=== PATIENT | male | born 1945 | race African-American/Black ===

== ENCOUNTER 2017-06-22 07:27 | Emergency (ER) | payer OTHER ==
[~2017-06-22] VITALS: Ht 177.8 cm; Wt 87.1 kg
[~2017-06-22 07:27] MED LIST: AMLODIPINE BESYL5 M1 PO; B-COMPLEX PLUS1 EACH PO; B12INJ; CENTRUM SILVER1 EAC4 PO; COQ-10100 MG PO; FISH OIL 1,001000 M2 PO; FLOMAX0.4 MG PO; GLUCOSAMINE1000 MG PO; HYDROCHLOROTHIA25 M2 PO; MECLIZINE HCL25 M1 PO; VITAMIN E400 UNI2 PO
[2017-06-22] MEDS ORDERED: OMEPRAZOLE 20 M20 M1 PO (07:38)
[2017-06-22 08:04] LABS: ABSOLUTE NEUTROPHILS 5.6 thou/uL (1.4-8.2); BASOPHILS 0.8 % (0.0-2.0); EOSINOPHILS 4.7 % (0.0-3.0); HEMATOCRIT 43.7 % (42.0-52.0); HEMOGLOBIN 14.4 gm/dL (14.0-18.0); LYMPHOCYTES 28.6 % (24.0-44.0); MCH 29.4 pg (26.0-34.0); MCV 89.2 fL (80.0-100.0); MONOCYTES 8.9 % (1.0-8.0); PLATELET COUNT 277 thou/uL (150-400); RDW 14.9 % (10.5-14.5); WBC 9.8 thou/uL (4.0-11.0)
[2017-06-22 08:04] LABS: URINE BILIRUBIN NEGATIVE (Negative); URINE BLOOD NEGATIVE (Negative); URINE CLARITY CLEAR; URINE COLOR YELLOW; URINE GLUCOSE-RANDOM* NEGATIVE (Negative); URINE KETONES NEGATIVE (Negative); URINE LEUKOCYTES-REFLEX NEGATIVE (Negative); URINE NITRITE-REFLEX NEGATIVE (Negative); URINE PROTEIN (DIPSTICK) NEGATIVE (Negative); URINE SPECIFIC GRAVITY 1.015 (1.005-1.035); URINE UROBILINOGEN 0.2 E.U./dl (0.2-1.0)
[2017-06-22 08:16] LABS: CALCIUM 9.2 mg/dL (8.5-10.1); CREATININE 1.2 mg/dL (0.7-1.3); POTASSIUM 4.1 mmol/L (3.5-5.1)
[2017-06-22 08:24] LABS: ALBUMIN 3.5 g/dL (3.4-5.0); TOTAL BILIRUBIN 0.4 mg/dL (<0.1-1.0); TOTAL PROTEIN 7.7 g/dL (6.4-8.2)
[2017-06-22 11:30] VITALS: BP 131/65
== END 2017-06-22 11:35 | disposition home or self-care (01) ==
LOC: ER 07:27
PROVIDERS: Emergency Medicine
DX: K76.89 Other specified diseases of liver (principal); I10 Essential (primary) hypertension